=== PATIENT | female | born 1950 | race Caucasian/White ===

== ENCOUNTER → 2016-08-14 | Outpatient (CLI) | payer MEDICARE, BC ==
[~2016-08-14] MED LIST: ASPIRIN 81M81 MG/TA2 PO; CEPHALEXIN500 M1 PO; COZAAR 25MG25 MG/TAB PO; DEXILANT60 MG PO; ESTRACE 1MG1 MG/TAB PO; LEVAQUIN 5500 MG/TA1 PO; LEXAPRO 10MG10 MG PO; LORTAB 5/500 501 TAB PO; NEXIUM 40MG40 MG PO; NORCO 325 MG-51 TAB PO; NORVASC 10MG10 MG PO; PHENERGAN 25 TA25 MG PO; PHENERGAN25 MG RC; SINGULAIR 110 MG/TAB PO; SYNTHROID0.1 MG PO; SYNTHROID0.112 MG/T PO; TAMIFLU30 MG; ZITHROMAX Z PA250 MG PO
== END ==
LOC: MC.RAD 11:20
DX: Z12.31 Encounter for screening mammogram for malignant neoplasm of breast (principal)

== ENCOUNTER → 2016-09-04 | Outpatient (CLI) | payer MEDICARE, BC | LOC: COL.RAD 08:48 | DX: M25.541 Pain in joints of right hand (principal) | CPT/HCPCS: J3301; Q9967 ==

== ENCOUNTER → 2016-12-19 | Outpatient (CLI) | payer MEDICARE, BC | LOC: COL.RAD 12-04 11:00 | DX: M79.644 Pain in right finger(s) (principal) | CPT/HCPCS: J3301; Q9967 ==

== ENCOUNTER 2016-12-29 05:10 | Emergency (ER) | payer MEDICARE, BC ==
[~2016-12-29] VITALS: Ht 157.5 cm; Wt 67.3 kg
[~2016-12-29 05:10] MED LIST changes: -ASPIRIN 81M81 MG/TA2 PO; -NORVASC 10MG10 MG PO
[2016-12-29 05:23] VITALS: TEMP 97.7
[2016-12-29] MEDS ORDERED: ASPIRIN 81M81 MG/TA2 PO (05:27)
[2016-12-29] MEDS ORDERED: NORVASC 10MG10 MG PO (05:30)
[2016-12-29 05:36] LABS: BASO % 0.3 % (0.0-2.0); EOS # 0.2 (0.0-0.7); EOS % 2.4 % (0-4.0); GRAN # 2.8 (1.4-6.5); GRAN % 44.9 % (42.2-75.2); HEMATOCRIT 37.2 % (37.0-47.0); HEMOGLOBIN 12.4 g/dl (12.5-16.0); LYMPH # 2.9 (1.2-3.4); LYMPH % 45.3 % (20.0-51.0); MEAN CELL VOLUME 92 fl (80.0-100.0); MEAN CORPUSCULAR HEMOGLOBIN 31 pg (27.0-31.0); MEAN CORPUSCULAR HGB CONC 33 g/dl (33.0-37.0); MEAN PLATELET VOLUME 9.7 fl (7.4-10.4); MONO # 0.4 (0.1-0.6); MONO % 6.8 % (1.7-9.3); PLATELET COUNT 274 K/mm3 (130-400); RED BLOOD COUNT 4.04 M/mm3 (4.10-5.30); REDCELL DISTRIBUTION WIDTH-CV 13.7 % (11.5-14.5); WHITE BLOOD COUNT 6.3 K/mm3 (4.8-10.8)
[2016-12-29 05:48] LABS: ADJUSTED CALCIUM 9.2 mg/dL (8.4-10.2); ALANINE AMINOTRANSFERASE 25 U/L (9-52); ALBUMIN 4.1 gm/dL (3.5-5.0); ALKALINE PHOSPHATASE 63 U/L (50-136); ANION GAP 10 mmol/L (7-16); BILIRUBIN,TOTAL 0.5 mg/dL (0.0-1.0); BLOOD UREA NITROGEN 15 mg/dL (7-17); CALCIUM 9.3 mg/dL (8.4-10.2); CARBON DIOXIDE 26 mmol/L (22-30); CHLORIDE 105 mmol/L (98-107); CREATININE, serum 0.78 mg/dL (0.52-1.25); GLUCOSE 104 mg/dL (74-106); POTASSIUM 3.9 mmol/L (3.4-5.0); SODIUM 140 mmol/L (137-145); TOTAL PROTEIN 6.9 gm/dL (6.4-8.2)
[2016-12-29 05:56] LABS: B-TYPE NATRIURETIC PEPTIDE 152 pg/mL (0-125)
[2016-12-29 06:02] LABS: TROPONIN-I < 0.012 ng/mL (0.000-0.034)
[2016-12-29 07:24] VITALS: BP 121/69; PULSE 68
== END 2016-12-29 07:24 | disposition home or self-care (01) ==
LOC: COL.ER 05:10
PROVIDERS: Emergency Medicine
DX: R00.2 Palpitations (principal); R06.00 Dyspnea, unspecified; E03.9 Hypothyroidism, unspecified; I10 Essential (primary) hypertension; J45.909 Unspecified asthma, uncomplicated
CPT/HCPCS: J7512

== ENCOUNTER → 2017-03-26 | Outpatient (CLI) | payer MEDICARE, BC ==
[~2017-03-26] MED LIST changes: +ASPIRIN 81M81 MG/TA2 PO; +NORVASC 10MG10 MG PO
== END ==
LOC: COL.RAD 09:09
DX: M79.644 Pain in right finger(s) (principal)
CPT/HCPCS: J3301; Q9967

== ENCOUNTER → 2017-07-21 | Outpatient (CLI) | payer MEDICARE, BC | LOC: COL.RAD 09:00 | DX: M16.11 Unilateral primary osteoarthritis, right hip (principal); M19.041 Primary osteoarthritis, right hand | CPT/HCPCS: J3301; Q9967 ==

== ENCOUNTER → 2017-08-17 | Outpatient (CLI) | payer MEDICARE, BC | LOC: MC.RAD 08:40 | DX: Z12.31 Encounter for screening mammogram for malignant neoplasm of breast (principal) ==

== ENCOUNTER → 2017-08-19 | Outpatient (CLI) | payer MEDICARE, BC | LOC: COL.RAD 09:43 | DX: K44.9 Diaphragmatic hernia without obstruction or gangrene (principal); K21.9 Gastro-esophageal reflux disease without esophagitis ==

== ENCOUNTER → 2017-09-14 | Outpatient (CLI) | payer MEDICARE, BC | LOC: COL.RAD 12:57 | DX: M25.551 Pain in right hip (principal) | CPT/HCPCS: J3301; Q9967 ==

== ENCOUNTER → 2017-11-24 | Outpatient (CLI) | payer MEDICARE, BC | LOC: COL.RAD 11-23 09:00 | DX: M18.11 Unilateral primary osteoarthritis of first carpometacarpal joint, right hand (principal); M79.671 Pain in right foot | CPT/HCPCS: J3301; Q9967 ==

== ENCOUNTER → 2017-12-30 | Outpatient (CLI) | payer MEDICARE, BC | LOC: COL.RAD 12-22 09:00 | DX: M25.551 Pain in right hip (principal) | CPT/HCPCS: J3301; Q9967 ==

== ENCOUNTER → 2018-01-29 | Outpatient (CLI) | payer MEDICARE, BC | LOC: COL.RAD 10:22 | DX: M18.11 Unilateral primary osteoarthritis of first carpometacarpal joint, right hand (principal); M79.671 Pain in right foot | CPT/HCPCS: J3301; Q9967 ==

== ENCOUNTER → 2018-05-26 | Outpatient (CLI) | payer MEDICARE, BC | LOC: COL.RAD 14:21 | DX: M70.61 Trochanteric bursitis, right hip (principal) | CPT/HCPCS: J3301; Q9967 ==

== ENCOUNTER → 2018-08-09 | Outpatient (CLI) | payer MEDICARE, BC | LOC: COL.RAD 09:40 | DX: M71.551 Other bursitis, not elsewhere classified, right hip (principal) | CPT/HCPCS: J3301; Q9967 ==

== ENCOUNTER → 2018-09-09 | Outpatient (CLI) | payer MEDICARE, BC | LOC: MC.RAD 09:15 | DX: Z12.31 Encounter for screening mammogram for malignant neoplasm of breast (principal) ==

== ENCOUNTER → 2019-03-25 | Outpatient (CLI) | payer MEDICARE, BC | LOC: COL.RAD 07:30 | DX: Z01.812 Encounter for preprocedural laboratory examination (principal); K63.89 Other specified diseases of intestine; K22.70 Barrett's esophagus without dysplasia; K21.9 Gastro-esophageal reflux disease without esophagitis; R91.8 Other nonspecific abnormal finding of lung field; Z90.49 Acquired absence of other specified parts of digestive tract; Z90.710 Acquired absence of both cervix and uterus | CPT/HCPCS: Q9967 ==

== ENCOUNTER → 2019-06-06 | Outpatient (CLI) | payer MEDICARE, BC | LOC: COL.RAD 05-27 08:00 | DX: M25.551 Pain in right hip (principal); M79.671 Pain in right foot | CPT/HCPCS: J3301; Q9967 ==

== ENCOUNTER → 2019-09-28 | Outpatient (CLI) | payer MEDICARE, BC | LOC: MC.RAD 13:06 | DX: N62 Hypertrophy of breast (principal); N64.4 Mastodynia; R10.12 Left upper quadrant pain | CPT/HCPCS: G0279 ==

== ENCOUNTER → 2019-10-14 | Outpatient (CLI) | payer MEDICARE, BC | LOC: COL.RAD 09:39 | DX: M16.11 Unilateral primary osteoarthritis, right hip (principal) | CPT/HCPCS: J3301; Q9967 ==

== ENCOUNTER → 2020-01-10 | Outpatient (CLI) | payer MEDICARE, BC | LOC: COL.RAD 09:59 | DX: M25.551 Pain in right hip (principal) | CPT/HCPCS: J3301; Q9967 ==

== ENCOUNTER → 2020-04-20 | Outpatient (CLI) | payer MEDICARE, BC | LOC: COL.RAD 09:34 | DX: M16.11 Unilateral primary osteoarthritis, right hip (principal) ==

== ENCOUNTER 2020-05-14 18:04 | Emergency (ER) | payer MEDICARE, BC ==
[~2020-05-14] VITALS: Ht 157.5 cm; Wt 65.8 kg
[2020-05-14 18:11] VITALS: TEMP 98.8
[2020-05-14 18:52] LABS: EOS % 0.6 % (0-4.0); GRAN # 4.3 (1.4-6.5); GRAN % 68.9 % (42.2-75.2); HEMATOCRIT 38.9 % (37.0-47.0); HEMOGLOBIN 13.4 g/dl (12.5-16.0); LYMPH # 1.7 (1.2-3.4); LYMPH % 26.7 % (20.0-51.0); MEAN CELL VOLUME 86 fl (80.0-100.0); MEAN CORPUSCULAR HEMOGLOBIN 30 pg (27.0-31.0); MEAN CORPUSCULAR HGB CONC 34 g/dl (33.0-37.0); MONO # 0.2 (0.1-0.6); MONO % 3.5 % (1.7-9.3); PLATELET COUNT 174 K/mm3 (130-400); RED BLOOD COUNT 4.51 M/mm3 (4.10-5.30); REDCELL DISTRIBUTION WIDTH-CV 13.9 % (11.5-14.5)
[2020-05-14 19:03] LABS: ALANINE AMINOTRANSFERASE 18 U/L (4-34); ALBUMIN 3.6 gm/dL (3.5-5.0); ALKALINE PHOSPHATASE 76 U/L (50-136); ANION GAP 8 mmol/L (7-16); AST,SGOT 25 U/L (15-37); BILIRUBIN,TOTAL 0.5 mg/dL (0.0-1.0); BLOOD UREA NITROGEN 13 mg/dL (7-17); CALCIUM 8.5 mg/dL (8.4-10.2); CARBON DIOXIDE 24 mmol/L (22-30); CHLORIDE 95 mmol/L (98-107); CREATININE, serum 0.84 (0.52-1.25); GLUCOSE 105 mg/dL (74-106); POTASSIUM 3.5 mmol/L (3.4-5.0); SODIUM 127 mmol/L (137-145); TOTAL PROTEIN 6.5 gm/dL (6.4-8.2)
[2020-05-14] MEDS ORDERED: COZAAR 25MG25 MG/TAB PO (19:13)
[2020-05-14 19:14] LABS: TROPONIN-I < 0.012 ng/mL (0.000-0.035)
[2020-05-14 21:29] VITALS: BP 99/47; PULSE 86
== END 2020-05-14 21:30 | disposition home or self-care (01) ==
LOC: COL.ER 18:04
PROVIDERS: Nurse Practitioner
DX: U07.1 COVID-19 (principal); R79.1 Abnormal coagulation profile; F32.9 Major depressive disorder, single episode, unspecified; Z88.5 Allergy status to narcotic agent; Z79.82 Long term (current) use of aspirin
CPT/HCPCS: J2405; J2550; J7030

== ENCOUNTER → 2020-09-03 | Outpatient (CLI) | payer MEDICARE, BC ==
[~2020-09-03] MED LIST changes: +BENICAR 20MG TA20 MG PO; +NITROSTAT0.4 MG/TAB SL; +PEPCID 20MG TAB20 MG PO; +XANAX .25M0.25 MG/TA PO
== END ==
LOC: COL.RAD 12:37
DX: M16.11 Unilateral primary osteoarthritis, right hip (principal)
CPT/HCPCS: J3301; Q9967

== ENCOUNTER → 2020-09-28 | Outpatient (CLI) | payer MEDICARE, BC | LOC: MC.RAD 09:03 | DX: Z12.31 Encounter for screening mammogram for malignant neoplasm of breast (principal) ==

== ENCOUNTER → 2020-12-13 | Outpatient (CLI) | payer MEDICARE, BC | LOC: COL.RAD 12:45 | DX: M25.551 Pain in right hip (principal) | CPT/HCPCS: J3301; Q9967 ==

== ENCOUNTER → 2021-03-15 | Outpatient (CLI) | payer MEDICARE, BC | LOC: COL.RAD 12:50 | DX: M25.551 Pain in right hip (principal) | CPT/HCPCS: J3301; Q9967 ==

== ENCOUNTER 2021-03-19 18:08 | Observation (INO) | payer MEDICARE, BC ==
[~2021-03-19] VITALS: Ht 157.5 cm; Wt 64.9 kg
[~2021-03-19 18:08] MED LIST changes: -BENICAR 20MG TA20 MG PO; -NITROSTAT0.4 MG/TAB SL; -PEPCID 20MG TAB20 MG PO; -XANAX .25M0.25 MG/TA PO
[2021-03-19 18:43] LABS: BASO % 0.3 % (0.0-2.0); EOS # 0.2 K/mm3 (0.0-0.7); EOS % 1.9 % (0-4.0); GRAN # 3.9 K/mm3 (1.4-6.5); GRAN % 43.8 % (42.2-75.2); HEMOGLOBIN 12.4 g/dl (12.5-16.0); LYMPH # 4.2 K/mm3 (1.2-3.4); LYMPH % 47.7 % (20.0-51.0); MEAN CELL VOLUME 88 fl (80.0-100.0); MEAN CORPUSCULAR HEMOGLOBIN 30 pg (27.0-31.0); MEAN CORPUSCULAR HGB CONC 34 g/dl (33.0-37.0); MEAN PLATELET VOLUME 10.4 fl (7.4-10.4); MONO # 0.5 K/mm3 (0.1-0.6); PLATELET COUNT 299 K/mm3 (130-400); RED BLOOD COUNT 4.14 M/mm3 (4.10-5.30); REDCELL DISTRIBUTION WIDTH-CV 14.2 % (11.5-14.5)
[2021-03-19 18:57] LABS: HEMATOCRIT 36.4 % (37.0-47.0)
[2021-03-19 19:00] LABS: ALBUMIN 3.6 gm/dL (3.4-4.8); BILIRUBIN,TOTAL 0.3 mg/dL (0.2-1.2); CREATININE, serum 0.79 mg/dL (0.57-1.11); POTASSIUM 3.5 mmol/L (3.5-4.5); TOTAL PROTEIN 6.9 gm/dL (6.2-8.1)
[2021-03-19 19:05] LABS: TROPONIN-I 0.01 ng/mL (0.00-0.033)
[2021-03-19] MEDS ORDERED: BENICAR 20MG TA20 MG PO (21:42)
[2021-03-19] MEDS ORDERED: XANAX .25M0.25 MG/TA PO (22:51)
[2021-03-19 23:47] VITALS: BP 164/78; PULSE 60; TEMP 97.8
[2021-03-20] VITALS (8 sets, daily range): BP systolic 114–155; BP diastolic 58–83; PULSE 62–102; TEMP 97.4–98.6
--- NOTE | 2021-03-20 01:39 | NUR ---
PT ARRIVES TO MEDICAL FLOOR ROOM 358 VIA ED STAFF AT ABOUT 2215, PT ABLE TO AMBULATE TO BED. PT REPORTS MIDEPIGASTRIC DISCOMOFRT AND RATES CHEST PAIN 3/10. NS INFUSING AT 125 TO LAC. PT DENIES DIAHHREA OR CONSTIPATION, DIZZINESS. PT REPORTS N,V. MEDICATION ADMINISTERED ORDERED. PHENERGAN SUPPOSITORY FOUND TO RELIEF PT. ASSESMENT COMPLETE, MED REC COMPLETE, PT ORIENTED TO ROOM, HOSPITAL POLICY. THIS NURSE HAS REVIEWED ORDERS AND HAS DISCUSSED POC WITH PT. PT VERBALIZES UNDERSTANDING. ALL QUESTIONS/CONCERNS ANSWERED. ALL NEEDS MET AT THIS TIME. CALL LIGHT WTIHIN REACH.
--- NOTE | 2021-03-20 05:25 | NUR ---
AFTER EMESIS EPISODE THIS NIGHT AND ADMINISTRATION OF PROMETHAZINE SUPPOSITORY PT FELT MUCH BETTER. CHEST PAIN REPORTED AT 07/18. POTTASIUM REPLACED 60MEQ ORALLY EVEN THOUGH PT NPO SHE WAS TOTALLY UNABLE TO TOLERATE IV. HOSPITALIST INFORMED. N/S INFUSING AT 5CC/HR TO LAC. ALL NEEDS MET THIS NIGHT. CALL LIGHT WITHIN REACH.
--- NOTE | 2021-03-20 06:22 | NUR ---
AT 0621 AUTOMOTIVE DESIGN LAYOUT DRAFTER CONSULTED; DR. RUIZ VERBALIZES CONFIRMATION.
--- NOTE | 2021-03-20 07:00 | NUR ---
Report received from BARRY Torres. PT in bed resting, anticipating bonillaan this am, will continue to monitor.
[2021-03-20 07:15] LABS: BASO % 0.4 % (0.0-2.0); EOS # 0.2 K/mm3 (0.0-0.7); EOS % 2.4 % (0-4.0); GRAN # 3.4 K/mm3 (1.4-6.5); GRAN % 45.3 % (42.2-75.2); HEMOGLOBIN 12.2 g/dl (12.5-16.0); LYMPH # 3.5 K/mm3 (1.2-3.4); LYMPH % 46.1 % (20.0-51.0); MEAN CELL VOLUME 87 fl (80.0-100.0); MEAN CORPUSCULAR HEMOGLOBIN 30 pg (27.0-31.0); MEAN CORPUSCULAR HGB CONC 34 g/dl (33.0-37.0); MEAN PLATELET VOLUME 10.4 fl (7.4-10.4); MONO # 0.4 K/mm3 (0.1-0.6); MONO % 5.4 % (1.7-9.3); PLATELET COUNT 302 K/mm3 (130-400); REDCELL DISTRIBUTION WIDTH-CV 14.1 % (11.5-14.5)
[2021-03-20 07:16] LABS: HEMATOCRIT 35.8 % (37.0-47.0)
--- NOTE | 2021-03-20 07:30 | NUR ---
Assessment charted. Pt in bed resting, going down for lexiscan at this time. Denies needs, will conitnue ot monitor.
[2021-03-20 07:35] LABS: CALCIUM 9.2 mg/dL (8.4-10.2); CREATININE, serum 0.71 mg/dL (0.57-1.11); POTASSIUM 4.6 mmol/L (3.5-4.5)
[2021-03-20 08:00] LABS: CHOLESTEROL RISK RATIO 3.4
[2021-03-20] MEDS ORDERED: PEPCID 20MG TAB20 MG PO (12:19)
[2021-03-20] MEDS ORDERED: NITROSTAT0.4 MG/TAB SL (12:50)
--- NOTE | 2021-03-20 13:33 | NUR ---
Discharge teaching completed at this time. INT dc'd, tip intact. Pt received dsicharge packet, reviewed f/u appontments, new meds. Answered all questions. Pt left wtih all bleongings, escorted out by myself, family to drive home, criteria met.
== END 2021-03-20 13:35 | disposition home or self-care (01) ==
LOC: COL.ER 18:08 → MEDICAL 21:29
PROVIDERS: Nurse Practitioner Primary Care; Student in an Organized Health Care Education/Training Program; ADMIT Internal Medicine
DX: R07.9 Chest pain, unspecified (principal); E87.6 Hypokalemia; E07.9 Disorder of thyroid, unspecified; Z79.890 Hormone replacement therapy; I10 Essential (primary) hypertension; E78.5 Hyperlipidemia, unspecified; F32.A Depression, unspecified; Z79.899 Other long term (current) drug therapy
CPT/HCPCS: 99239; A9500; G0378; J1650; J2405; J2785; J3480; J7030

== ENCOUNTER → 2021-10-16 | Outpatient (CLI) | payer MEDICARE, BC ==
[~2021-10-16] MED LIST changes: +BENICAR 20MG TA20 MG PO; +NITROSTAT0.4 MG/TAB SL; +PEPCID 20MG TAB20 MG PO; +XANAX .25M0.25 MG/TA PO
== END ==
LOC: MC.RAD 10:08
DX: Z12.31 Encounter for screening mammogram for malignant neoplasm of breast (principal)

== ENCOUNTER → 2024-02-01 | Outpatient (CLI) | payer MEDICARE, BC | LOC: MC.RAD 12:49 | DX: Z12.31 Encounter for screening mammogram for malignant neoplasm of breast (principal) ==